=== PATIENT | male | born 2000 | race Caucasian/White ===

== ENCOUNTER 2019-02-26 12:35 | Emergency (ER) | payer OTHER ==
[2019-02-26] MEDS ORDERED: ISOVUE-370 76%-LOCM 1 ML ONE (13:00)
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
[2019-02-26] MEDS ORDERED: Morphine 4 MG/ML VIAL ONE ×2 (13:30→14:51)
[2019-02-26] MEDS ORDERED: Morphine 2 MG/ML SYRINGE ONE (13:30)
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
[2019-02-26] MEDS ORDERED: Fentanyl 100 MCG/2 ML VIAL ONE ×2 (14:04→14:09)
== END 2019-02-26 14:45 | disposition home or self-care (01) ==
LOC: ERS 12:35
DX: S52.502A Unspecified fracture of the lower end of left radius, initial encounter for closed fracture (principal); S52.602A Unspecified fracture of lower end of left ulna, initial encounter for closed fracture; S02.69XB Fracture of mandible of other specified site, initial encounter for open fracture; V29.9XXA Motorcycle rider (driver) (passenger) injured in unspecified traffic accident, initial encounter
CPT/HCPCS: 29125; 70450; 70486; 71260; 72125; 74177; 96374; 96375; 96376; G0390; J2270; J3010; Q9966